=== PATIENT | female | born 1995 | race African-American/Black ===

== ENCOUNTER 2016-07-14 14:09 | Emergency (ER) | payer OTHER ==
[~2016-07-14] VITALS: Ht 177.8 cm; Wt 65.3 kg
[~2016-07-14 14:09] MED LIST: ALBUTEROL SULF8.5 GM INH; PREDNISONE20 MG ORAL
[2016-07-14 15:03] VITALS: BP 111/71
--- NOTE | 2016-07-14 15:38 | Diagnostic Imaging Report ---
Indication: Pain Findings: 3 views of the right wrist were obtained. No acute fractures, malalignment, erosions or periostitis are identified. Bone mineralization is within normal limits. Soft tissues are unremarkable. Impression: Negative examination of the right wrist.
--- NOTE | 2016-07-14 15:39 | Diagnostic Imaging Report ---
Indication: pain Findings: 3 views of the right hand were obtained. Normal bony mineralization and alignment are demonstrated. No acute fractures, erosions, or periosteal reaction are seen. Soft tissues are unremarkable. Impression: Negative examination of the right hand.
[2016-07-14] MEDS ORDERED: IBUPROFEN600 MG ORAL (15:55)
[2016-07-14 16:19] VITALS: BP 111/71
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
== END 2016-07-14 16:19 | disposition home or self-care (01) ==
LOC: EMR 14:50
DX: S00.81XA Abrasion of other part of head, initial encounter (principal); S63.501A Unspecified sprain of right wrist, initial encounter; J45.909 Unspecified asthma, uncomplicated; Y04.8XXA Assault by other bodily force, initial encounter; X58.XXXA Exposure to other specified factors, initial encounter; Y92.9 Unspecified place or not applicable; Y99.8 Other external cause status
CPT/HCPCS: 29260; 99284